=== PATIENT | female | born 1980 | race Caucasian/White ===

== ENCOUNTER → 2018-04-19 | Outpatient (CLI) | payer OTHER ==
--- NOTE | 2018-04-19 11:23 | KCIC ---
EXAM: Bilateral hips, 2 views. HISTORY: Pain. COMPARISON: None. FINDINGS: Frontal and frog-leg views of both hips are obtained. There is no fracture, dislocation or subluxation. The femoral heads are normal in configuration and seated appropriately. There is an IUD overlying the pelvis. There is a bump at the left femoral head-neck junction which is likely projectional rather than due to the sequela of impingement. IMPRESSION: No acute osseous finding. Electronically signed by: Iris Moise MD (04/19/2018 11:19 AM) [place] [id number]
--- NOTE | 2018-04-19 11:55 | KCIC ---
EXAMINATION: Magnetic resonance imaging (MRI) of the lumbar spine without contrast 04/19/2018 10:15 AM HISTORY: Lumbar radiculopathy involving bilateral lower extremities TECHNIQUE: Multiplanar multi-weighted MRI of the lumbar spine was performed without intravenous contrast using the standard lumbar spine protocol. Contrast information: None administered. COMPARISON: None available. FINDINGS: The alignment of the lumbar spine is normal. Vertebral bodies demonstrate normal signal intensity on all sequences. There are no compression fractures. The conus medullaris terminates at the level of L1. The distal spinal cord signal intensity is normal. There is mild disc height loss with disc desiccation and Modic type II endplate degenerative changes at L5-S1. There is an annular fissure at this level. Limited views of the abdomen and pelvis show no soft tissue abnormality. The aorta is normal. L2-L3: The disc is normal in configuration. There is mild facet arthropathy. There is no neuroforaminal stenosis. There is no spinal canal stenosis. L3-L4: There is minimal disc bulge. There is mild facet arthropathy. There is no neuroforaminal stenosis. There is no spinal canal stenosis. L4-L5: There is minimal disc bulge. There is mild facet arthropathy. There is no neuroforaminal stenosis. There is no spinal canal stenosis. L5-S1: There is a left central disc extrusion. There is moderate facet arthropathy. There is severe left neuroforaminal stenosis. There is mild spinal canal stenosis. There is severe left lateral recess stenosis which likely affects the traversing left S1 nerve. 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 Electronically signed by: Jaqueline Minaya MD (04/19/2018 11:52 AM) [id number]
== END | disposition home or self-care (01) ==
LOC: KCIC 08:51
PROVIDERS: ATTEND Anesthesiology
DX: M54.16 Radiculopathy, lumbar region (principal); M48.061 Spinal stenosis, lumbar region without neurogenic claudication; M25.551 Pain in right hip; M25.552 Pain in left hip
CPT/HCPCS: 72148; 73502